=== PATIENT | female | born 1960 | race Caucasian/White ===

== ENCOUNTER 2018-02-22 12:53 | Emergency (ER) | payer OTHER ==
[2018-02-22 12:58] VITALS: BP 149/92
--- NOTE | 2018-02-22 13:08 | EDPHY ---
HPI/HX/ROS/PE/MDM Narrative: CHIEF COMPLAINT: Visual disturbance HISTORY OF PRESENT ILLNESS: This patient is a 57 year-old female with history of hypertension presenting with right-sided visual disturbances onset yesterday afternoon. 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 She did not have any procedures and her eyes were not dilated during the exam. She does report holding her eye open and closed for a series of pictures. Yesterday around 3pm, she developed flashing and dark lines in her right lateral field of vision, from her right eye only.. This has now largely resolved , but she continues to see intermittent flashing when she blinks and a fixed, curvy, crooked line out of her right eye. She has no symptoms in her left eye, and the visual abnormalities are not present if she closes her right eye. She denies any eye or head pain. No dark edges to her field of vision. No photophobia. No history of glaucoma. No recent falls or other head trauma. No fever, chills, chest pain, shortness of breath, palpitations, vomiting, diarrhea , urinary complaints, headache, lightheadedness. REVIEW OF SYSTEMS: A comprehensive 10 system review of systems was reviewed and is otherwise negative aside from elements mentioned in the history of present illness. PAST MEDICAL HISTORY: Hypertension (losartan). Recent diagnosis of diabetes mellitus, not medicated. HRT (progesterone) SOCIAL HISTORY: Lives in [place]. Employed. Does not abuse tobacco, drugs, or alcohol. 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 Visual Acuity: noted from Nurse's notes. Focused examination of the right eye. Eyelid: No edema, erythema or swelling. Pupils: 5mm. Round and reactive to light. EOMI Conjunctivae:No injection, no discharge. Anterior chamber: Normal, no hyphema or hypopyon Funduscopic: Undilated exam is normal. Skin: No proptosis, no periorbital erythema or swelling, no vesicles. Confrontational visual field testing: Normal, no visual field defect of the right eye. VITAL SIGNS: Reviewed by me GENERAL: Well-developed, well-nourished, resting comfortably in no respiratory distress. HEENT: Atraumatic. NEURO: Alert and oriented, grossly nonfocal. SKIN: Warm and dry, no rash. PSYCHIATRIC: Normal mentation, no agitation. Portions of this note were transcribed by a medical dir. I personally performed a history, physical exam, medical decision making, and confirmed accuracy of information the transcribed note. ED Course: 57 y/o female presents with right-sided visual disturbance onset yesterday around 3pm. Eye exam is unremarkable. History and exam are suspicious for detached retina, vitreous detachment, or other ophthalmological eye issue. 13:28 Placed call to consult with Dr. 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 The patient is supposed to fly to the tomorrow for work. 13:[address] Salas. She will evaluate the patient tomorrow morning in her office. The patient will call if her symptoms worsen or her vision changes prior to this appointment. Plan to discharge home in good condition. Follow up and return precautions discussed. The patient is comfortable with this plan and will follow up with Dr. Salas tomorrow morning at 9:00 as scheduled. MDM: Differential diagnoses for the patient's symptom complex was considered including but not limited to retinal detachment, retinal tear, vitreous hemorrhage, Ryan separation, central retinal artery occlusion, central retinal vein occlusion. General Time Seen by Provider: 02/22/18 12:57 Initial Vital Signs: Initial Vital Signs Temperature (C) 36.7 C 02/22/18 12:56 Heart Rate 75 02/22/18 12:56 Respiratory Rate 18 02/22/18 12:56 Blood Pressure 149/92 H 02/22/18 12:56 O2 Sat (%) 95 02/22/18 12:56 O2 Delivery Mode Room Air Allergies/Adverse Reactions: penicillin V potassium [From Pen-Vee K] Allergy (Severe, Verified 02/22/18 12:55 ) 1ST X HIVES, 2ND X SWELLING LIPS MOUTH, 3RD FAINTED hydrocodone bitartrate [From Vicodin] Allergy (Mild, Verified 02/22/18 12:55) Vomiting Home Medications: Medication Instructions Recorded Losartan Potassium 50 mg PO DAILY 05/17/16 Progesterone 02/22/18 Departure - Departure Disposition: Home, Routine, Self-Care Clinical Impression: Visual disturbance Condition: Good Instructions: Visual Floaters (ED) Additional Instructions: 1. Follow up with Dr. Salas, servicenow administrator developer. You have an appointment tomorrow morning at 9:00am at her office in [place]. The address is [address] [place] [id number]. Their office can be contacted at [phone]. 2. Stay well hydrated. Avoid any possibility for eye trauma and do not rub your eye. 3. Return to the emergency department for severe headache, eye pain, worsening or different changes in your vision, dizziness, or other worsening of condition or further concerns. Referrals: Tavon Jeffery MD [Primary Care Provider] - As per Instructions Karon Salas MD [Non Staff Provider (MD)] - As per Instructions Report Scribed for: Elena Sheppard Report Scribed by: Shilpi Mcwilliams Date of Report: 02/22/18 Time of Report: 13:09
== END 2018-02-22 13:52 | disposition home or self-care (01) ==
DX: H53.9 Unspecified visual disturbance (principal); I10 Essential (primary) hypertension; E11.9 Type 2 diabetes mellitus without complications

== ENCOUNTER → 2018-03-30 | Outpatient (CLI) | payer OTHER | LOC: BMCIMAGING 08:04 | PROVIDERS: ATTEND Nurse Practitioner Adult Health | DX: Z12.31 Encounter for screening mammogram for malignant neoplasm of breast (principal) ==